=== PATIENT | male | born 1980 | race Caucasian/White ===

== ENCOUNTER 2023-06-23 09:32 | Emergency (ER) | payer OTHER ==
[~2023-06-23] VITALS: Ht 182 cm; Wt 88.0 kg
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
[2023-06-23] MEDS ORDERED: HYDROcodone/ACETAMINOPHEN 5 MG/325 MG TABLET PO ONE (10:00)
--- NOTE | 2023-06-23 10:36 | Diagnostic Imaging Report ---
EXAMINATION: Right shoulder radiographs, 3 views. COMPARISON: None. HISTORY: 43-year-old male, right shoulder pain. FINDINGS: The humeral head is normally positioned relative to the glenoid. The glenohumeral joint space is well-maintained. The acromioclavicular joint is normally aligned. There are no acromioclavicular degenerative changes. There is no identified acute fracture. IMPRESSION: Unremarkable radiographs of the right shoulder. Dictated by: Dictated on workstation # [id number]
[2023-06-23] MEDS ORDERED: IBUP-1780 PO (10:46)
[2023-06-23 10:52] VITALS: BP 154/99
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
== END 2023-06-23 10:52 | disposition home or self-care (01) ==
LOC: EDUNIT# 09:32 → ER 09:37
DX: S43.51XA Sprain of right acromioclavicular joint, initial encounter (principal); R07.81 Pleurodynia; V86.56XA Driver of dirt bike or motor/cross bike injured in nontraffic accident, initial encounter
CPT/HCPCS: 71101; 73030